=== PATIENT | female | born 1960 | race Caucasian/White ===

== ENCOUNTER 2016-12-19 12:38 | Inpatient (IN) | payer MEDICAID ==
[~2016-12-19] VITALS: Ht 162.6 cm; Wt 91.6 kg
[2016-12-19 12:49] VITALS: BP 136/70
--- NOTE | 2016-12-19 13:04 | NUR ---
Patient transferred to bed 8 via wheelchair by tech. RN evaluating patient at bedside.
--- NOTE | 2016-12-19 13:08 | NUR ---
PATIENT PRESENTS TO ED WITH C/O LEFT GLUTEAL PAIN RADIATING TO LEFT KNEE, X3 DAYS BURNING THROBBING PAIN;S/P SLEPT TUESDAY NIGHT IN A TENT OUTSIDE---AMBULATORY WITH SLOW PACE STEADY GAIT;HX OF HTN, NEUROPATHY, HYPERLIPIDEMIA;RX OF ENALAPRIL, AMLODIPINE, GABAPENTIN, SIMVASTATIN . DENIES N/V/D; SKIN IS PINK/WARM/DRY; AAOX4 WITH EVEN AND STEADY GAIT; LUNGS CLEAR BL; HR EVEN AND REGULAR; PT DENIES ANY FEVER, CP, SOB, OR COUGH AT THIS TIME; PATIENT STATES PAIN OF 10/10 AT THIS TIME; PATIENT POSITIONED FOR COMFORT; HOB ELEVATED; BEDRAILS UP X2; BED DOWN.
[2016-12-19] MEDS ORDERED: NACL 0.9% 1,000 ML IV SCH (13:22)
[2016-12-19] MEDS ORDERED: ONDANSETRON 4 MG/2 ML VIAL IVP ONE (13:25)
[2016-12-19] MEDS ORDERED: KETOROLAC 30 MG/ML VIAL IVP ONE (13:25)
[2016-12-19 13:42] LABS: BASOPHILS # (AUTO) 0.5 K/uL (0.00-0.22); BASOPHILS % (AUTO) 3.8 % (0.0-2.0); EOSINOPHILS # (AUTO) 0.1 K/uL (0-0.4); EOSINOPHILS % (AUTO) 0.6 % (0.0-4.0); HEMATOCRIT 47.3 % (36-48); HEMOGLOBIN 15.3 g/dL (12.0-16.0); LYMPHOCYTES # (AUTO) 3.8 K/uL (2.5-16.5); MEAN CORPUSCULAR HEMOGLOBIN 27 pg (27-31); MEAN CORPUSCULAR HGB CONC 32 g/dL (33-37); MEAN CORPUSCULAR VOLUME 85 fL (80-94); MONOCYTES # (AUTO) 0.6 K/uL (0.8-1.0); MONOCYTES % (AUTO) 5.1 % (1.7-9.3); NEUTROPHILS % (AUTO) 58.5 % (42.2-75.2); PLATELET COUNT (AUTO) 328 K/uL (140-450); RED BLOOD CELL COUNT(AUTO) 5.59 MIL/uL (4.20-5.40); RED CELL DISTRIBUTION WIDTH 12.7 % (11.6-13.7)
[2016-12-19 13:47] LABS: APPEARANCE,URINE CLEAR (CLEAR); BILIRUBIN,URINE NEGATIVE (NEGATIVE); BLOOD, URINE 2+ (NEGATIVE); COLOR,URINE YELLOW (YELLOW); LEUKOCYTE ESTERASE ,URINE 2+ (NEGATIVE); NITRITE, URINE NEGATIVE (NEGATIVE); PROTEIN,URINE 1+ (NEGATIVE); UGLUCOSE NEGATIVE (NEGATIVE); UROBILINOGEN,URINE 0.2 EU/dL (0.2 - 1)
[2016-12-19 13:56] LABS: BACTERIA,URINE 1+ /HPF (None Seen); RBC,URINE 11-20 (MOD) /HPF (0-5); SQUAMOUS EPITHELIAL CELL,UR 4-10 (MOD) /LPF (0-3 (FEW))
[2016-12-19 13:57] LABS: ANION GAP 17.1 (8-16); CALCIUM 9.2 mg/dL (8.5-10.1); CARBON DIOXIDE 23.1 mmol/L (21-32); CREATININE 0.7 mg/dL (0.6-1.3); POTASSIUM 3.2 mmol/L (3.5-5.1)
[2016-12-19 14:01] LABS: PARTIAL THROMBOPLASTIN TIME 26.8 secs (22-35.6); PROTHROMBIN TIME 10.2 secs (10.8-13.4)
[2016-12-19 14:03] LABS: ALBUMIN 4.3 g/dL (3.4-5.0); TOTAL BILIRUBIN 0.5 mg/dL (0.0-1.0); TOTAL PROTEIN, SERUM 8.2 g/dL (6.4-8.2)
--- NOTE | 2016-12-19 15:23 | NUR ---
ASSISTED TO BEDPAN
[2016-12-19] MEDS ORDERED: MORPHINE SULFATE 2 MG/ML SYR IVP PRN (16:10)
[2016-12-19] MEDS ORDERED: DOCUSATE SODIUM 100 MG GELCAP PO PRN (16:10)
[2016-12-19] MEDS ORDERED: ONDANSETRON 4 MG/2 ML VIAL IM/IVP PRN (16:10)
[2016-12-19] MEDS ORDERED: ACETAMINOPHEN 325 MG TAB PO PRN (16:10)
[2016-12-19] MEDS ORDERED: POTASSIUM CHLORIDE 10 MEQ TABER PO SCH (16:30)
--- NOTE | 2016-12-19 16:32 | NUR ---
Patient will be admitted to care of DR PRICE. Admited to TELE. Will go to room 119. Belongings list completed. Report to GAYATHRI HARLEY.
[2016-12-19] MEDS: LACTOBACILLUS RHAMNOSUS GG 1 EACH CAP PO SCH (16:35)
[2016-12-19] MEDS ORDERED: VAS10 PO (16:39)
[2016-12-19] MEDS ORDERED: AMLO10TA PO (16:39)
[2016-12-19] MEDS ORDERED: SIMV20TA1 PO (16:39)
[2016-12-19] MEDS ORDERED: GABA300C PO (16:39)
--- NOTE | 2016-12-19 17:00 | NUR ---
PATIENT ADMITTED TO THE UNIT FROM ER. PATIENT AWAKE, ALERT AND ORIENTED. PATIENT BREATHING ON ROOM AIR. PATIENT C/O 10/10 PAIN ON HER LEFT LEG AND LOWER BACK WHEN SHE AMBULATES. SKIN IS INTACT. IV LINE NOTED TO THE RIGHT AC. PATIENT PLACED ON TELE MONITORING. BED LOWERED WITH CALL LIGHT WITHIN REACH. WILL CONTINUE TO MONITOR
[2016-12-19 17:02] LABS: CHOL/HDL RATIO 3.7 (1-4.5); FREE T4 (FREE THYROXINE) 1.18 ng/dL (0.76-1.46); MAGNESIUM 2.2 mg/dL (1.8-2.4); PHOSPHORUS 3.2 mg/dL (2.5-4.9); THYROID STIMULATING HORMONE 1.61 uIU/mL (0.34-3.74)
[2016-12-19] MEDS ORDERED: DEXAMETHASONE 4 MG/ML VIAL IVP SCH ×2 (17:30→17:50)
--- NOTE | 2016-12-19 17:30 | NUR ---
DR LO EVALUATING PATIENT AT BEDSIDE
[2016-12-19 17:52] VITALS: BP 135/73
[2016-12-19] MEDS ORDERED: cefTRIAXone 1,000 MG VIAL ONE (18:13)
[2016-12-19] MEDS: METHOCARBAMOL 500 MG TAB PO SCH ×2 (18:25→20:25)
--- NOTE | 2016-12-19 18:26 | NUR ---
PER DR. WALLY KEITH TO HOLD CULTURELLE UNTIL TOMORROW AM.
--- NOTE | 2016-12-19 19:30 | NUR ---
ENDORSED CONTINUITY OF CARE TO THE NIGHT NURSE. PATIENT ENDORSED IN STABLE CONDITION
--- NOTE | 2016-12-19 19:31 | NUR ---
RECEIVED REPORT FROM AM NURSE. PATIENT SEEN ON BED EATING DINNER, A/OX4, ABLE TO VERBALIZE NEEDS. NO S/S OF DISTRESS. WITH AN IV AT RIGHT AC 20 G, PATENT AND INTACT. NO COMPLAINTS OF PAIN, BUT VERBALIZES THAT WHEN SHE AMBULATES TO THE BATHROOM, SHE FEELS THE PAIN IN HER LEG. ALSO SHE VERBALIZED THAT THE SEQUENTIALS HELP WITH HER LEG. SKIN INTACT. ON TELE MONTIORING, AT . DISCUSSED PLAN OF CARE WITH THE PATIENT, VERBALIZED UNDERSTANDING. WILL CONTINUE TO MONITOR. CALL LIGHT WITHIN REACH. SAFETY CHECKS IN PLACE.
[2016-12-19 20:00] VITALS: BP 123/64
[2016-12-19] MEDS: SIMVASTATIN 20 MG TAB PO SCH (20:23)
--- NOTE | 2016-12-19 20:23 | NUR ---
VITAL SIGNS STABLE. DUE MEDS GIVEN, TOLERATED. WILL CONTINUE TO MONITOR.
--- NOTE | 2016-12-19 22:08 | NUR ---
PT SEEN ON BED ASLEEP, NO S/S OF DISTRESS. WILL CONTINUE TO MONITOR FOR ANY CHANGES.
[2016-12-19] MEDS: HYDROcodone/APAP 7.5/325 MG 1 TAB PO PRN (22:18)
--- NOTE | 2016-12-19 22:18 | NUR ---
PT REPORTED PAIN IN THE LEGS, GIVEN PRN NORCO. WILL CONTINUE TO MONITOR FOR ANY CHANGES.
[2016-12-20] VITALS: BP 121/70
--- NOTE | 2016-12-20 | NUR ---
PT SEEN AWAKE ON BED. VITAL SIGNS TAKEN AND ARE STABLE. AMBULATED TO THE BATHROOM. WILL CONTINUE TO MONITOR FOR ANY CHANGES.
--- NOTE | 2016-12-20 00:05 | NUR ---
INSTRUCTED PT FOR NPO POST MIDNIGHT Addendum: 12/20/16 at 0438 by Peace Bowers RN WRONG PATIENT
--- NOTE | 2016-12-20 03:05 | NUR ---
PT SEEN AMBULATING TO THE BATHROOM. NO S/S OF DISTRESS. WILL CONTINUE TO MONITOR FOR ANY CHANGES.
[2016-12-20 04:00] VITALS: BP 121/81
--- NOTE | 2016-12-20 06:25 | NUR ---
PT AMBULATED TO THE BATHROOM. NO S/S OF DISTRESS. WILL CONTINUE TO MONITOR.
--- NOTE | 2016-12-20 07:23 | NUR ---
ENDORSED TO AM NURSE FOR CONTINUITY OF CARE. IN STABLE CONDITION.
--- NOTE | 2016-12-20 07:24 | NUR ---
RECEIVED PT IN BED. AWAKE. ALERT ORIENTED X4. NO SOB NOTED. DENIES ANY PAIN OR DISCOMFORT AT THIS TIME.POSITIVE BOWEL SOUNDS NOTED ON FOUR QUADRANTS. PT AMBULATORY. DENIES ANY DISCOMFORT WITH BOWEL OR BLADDER ELIMINATION AT THIS TIME. SAFETY PRECAUTION IN PLACE. CALL LIGHT WITHIN REACH.
[2016-12-20 08:00] VITALS: BP 135/80
[2016-12-20] MEDS: LACTOBACILLUS RHAMNOSUS GG 1 EACH CAP PO SCH (08:27)
[2016-12-20] MEDS: ENALAPRIL 10 MG TAB PO SCH (08:27)
[2016-12-20] MEDS: amLODIPine 5 MG TAB PO SCH (08:28)
[2016-12-20] MEDS: METHOCARBAMOL 500 MG TAB PO SCH ×4 (08:28→20:54)
[2016-12-20] MEDS: GABAPENTIN 300 MG CAP PO SCH (08:28)
[2016-12-20 08:55] LABS: HEMATOCRIT 47.4 % (36-48); HEMOGLOBIN 15.5 g/dL (12.0-16.0); MEAN CORPUSCULAR HEMOGLOBIN 28 pg (27-31); MEAN CORPUSCULAR HGB CONC 33 g/dL (33-37); MEAN CORPUSCULAR VOLUME 86 fL (80-94); PLATELET COUNT (AUTO) 338 K/uL (140-450); RED BLOOD CELL COUNT(AUTO) 5.53 MIL/uL (4.20-5.40); RED CELL DISTRIBUTION WIDTH 12.4 % (11.6-13.7)
--- NOTE | 2016-12-20 08:55 | NUR ---
PATIENT HAS BEEN SCREENED AND CATEGORIZED MODERATE NUTRITION RISK. PATIENT WILL BE SEEN WITHIN 3-5 DAYS OF ADMISSION. 12/22/16-12/24/[address]
[2016-12-20 09:15] LABS: T4 (THYROXINE) 9.3 ug/dL (4.5-12.0)
[2016-12-20 09:20] LABS: ANION GAP 14.9 (8-16); CALCIUM 8.9 mg/dL (8.5-10.1); CARBON DIOXIDE 24.9 mmol/L (21-32); CREATININE 1.1 mg/dL (0.6-1.3); POTASSIUM 3.8 mmol/L (3.5-5.1)
[2016-12-20 09:24] LABS: MAGNESIUM 2.3 mg/dL (1.8-2.4)
[2016-12-20 09:32] LABS: WHITE BLOOD COUNT (AUTO) 18.8 K/uL (4.8-10.8)
[2016-12-20 09:33] LABS: BAND % (MANUAL) 1 % (0-8); LYMPHOCYTES % (MANUAL) 14 % (20-46); MONOCYTES % (MANUAL) 1 % (5-12); NEUTROPHILS % (MANUAL) 84 (43-65)
[2016-12-20 12:00] VITALS: BP 127/73
[2016-12-20] MEDS: HYDROcodone/APAP 7.5/325 MG 1 TAB PO PRN (12:28)
--- NOTE | 2016-12-20 13:00 | NUR ---
DR. WOOD MADE AWARE OF PT REQUEST TO HAVE A SLEEPING PILL AT NIGHT SINCE SHE USED TO TAKE IT BEFORE BEING ADMITTED TO THE HOSPITAL AND SHE HAD A HARD TIME SLEEPING LAST NIGHT. TO SEE PT AND TO MAKE AN ORDER.
--- NOTE | 2016-12-20 14:22 | NUR ---
FAXED INITIAL REVIEW TO [facility] [phone] PHONE JEFFREY [phone]
[2016-12-20 16:00] VITALS: BP 119/64
--- NOTE | 2016-12-20 18:20 | NUR ---
DAUGHTER GAVINO AT BEDSIDE ASSISTED PT WITH FEEDING. PT CONSUMED 50-70% OF HER MEAL. PT AWAKE. IJ LINE DRESSING DRY AND INTACT.
--- NOTE | 2016-12-20 19:22 | NUR ---
PT KEPT CLEAN, DRY AND COMFORTABLE, NEEDS ATTENDED. ENDORSED TO NEXT SHIFT ON STABLE CONDITION FOR CONTINUITY OF CARE. HEATING PAD IN PLACE, PT VERBALIZED IT GIVES HER COMFORT AND SCD IN PLACE.
--- NOTE | 2016-12-20 19:25 | NUR ---
RECEIVED FROM AM RN IN BED SLEEPING. WAKES UP WHEN TOUCHED. WENT BACK TO SLEEP. NO COMPLAINTS DONE AT THIS TIME. CARE PLANS FOR THE NIGHT DISCUSSED WITH HER AND CALL LIGHT WITH IN REACH.
[2016-12-20] MEDS: SIMVASTATIN 20 MG TAB PO SCH (20:54)
[2016-12-20] MEDS ORDERED: ZOLPIDEM 5 MG TAB PO SCH (21:00)
--- NOTE | 2016-12-20 22:30 | NUR ---
CT SCAN OF LUMBAR SPINE WITHOUT CONTRAST DONE. NO COMPLAINTS DONE. GOOD AFFECT. CALL LIGHT WITH IN REACH. ABLE TO VERBALIZE NEEDS WELL.
[2016-12-21 00:20] VITALS: BP 120/80
--- NOTE | 2016-12-21 00:38 | NUR ---
ASLEEP. NO RESTLESSNESS NOTED. INDEPENDENT. CALL LIGHT WITH IN REACH. NO PAIN COMPLAINTS DONE AT THIS TIME. DX. LOW BACK PAIN AND LEFT LEG PAIN.
--- NOTE | 2016-12-21 02:10 | NUR ---
SLEEPING. NO RESTLESSNESS NOTED. CALL LIGHT WITH IN REACH. IVF SITE ON [facility].
--- NOTE | 2016-12-21 04:15 | NUR ---
SLEEPING WELL THIS SHIFT. NO PAIN COMPLAINTS DONE. CALL LIGHT WITH IN REACH AT ALL TIMES. A/O X 4. ROM X 4.
[2016-12-21 05:35] LABS: BASOPHILS # (AUTO) 0.2 K/uL (0.00-0.22); BASOPHILS % (AUTO) 1.1 % (0.0-2.0); EOSINOPHILS # (AUTO) 0.2 K/uL (0-0.4); HEMATOCRIT 42.8 % (36-48); LYMPHOCYTES # (AUTO) 3.8 K/uL (2.5-16.5); LYMPHOCYTES % (AUTO) 22.4 % (20.5-51.1); MEAN CORPUSCULAR HEMOGLOBIN 28 pg (27-31); MEAN CORPUSCULAR HGB CONC 33 g/dL (33-37); MEAN CORPUSCULAR VOLUME 86 fL (80-94); MONOCYTES # (AUTO) 0.7 K/uL (0.8-1.0); MONOCYTES % (AUTO) 4.1 % (1.7-9.3); NEUTROPHILS % (AUTO) 71.4 % (42.2-75.2); PLATELET COUNT (AUTO) 320 K/uL (140-450); RED BLOOD CELL COUNT(AUTO) 4.99 MIL/uL (4.20-5.40); RED CELL DISTRIBUTION WIDTH 12.8 % (11.6-13.7); WHITE BLOOD COUNT (AUTO) 16.9 K/uL (4.8-10.8)
--- NOTE | 2016-12-21 07:28 | NUR ---
SLEEPING WELL THIS SHIFT. WOKE UP WHEN TOUCHED AND INTRODUCED AM RN TO HER. GOOD AFFECT. NO PAIN COMPLAINTS DONE.
--- NOTE | 2016-12-21 07:29 | NUR ---
PT AWAKE AND ALERT, NO SIGNS OF ACUTE DISTRESS. BOWEL SOUNDS ACTIVE IN ALL 4 QUADRANTS, BOWEL AND BLADDER CONTINENCE. SKIN INTACT. AMBULATORY WITH BRP. IV PATENT AND ASYMPTOMATIC. DENIES PAIN AT THIS TIME. RE-ORIENTED PATIENT TO HOSPITAL AND TO UNIT, PT VERBALIZES UNDERSTANDING. BED IN LOW POSITION WITH BILATERAL HALF SIDE RAILS UP, CALL LIGHT WITHIN REACH.
[2016-12-21 08:00] VITALS: BP 119/66
[2016-12-21 08:12] LABS: HEMOGLOBIN A1C 6.6 % (4.8-5.6)
[2016-12-21] MEDS: GABAPENTIN 300 MG CAP PO SCH (08:36)
[2016-12-21] MEDS: LACTOBACILLUS RHAMNOSUS GG 1 EACH CAP PO SCH (08:36)
[2016-12-21] MEDS: METHOCARBAMOL 500 MG TAB PO SCH ×3 (08:37→16:31)
[2016-12-21] MEDS: amLODIPine 5 MG TAB PO SCH (08:37)
[2016-12-21] MEDS: ENALAPRIL 10 MG TAB PO SCH (08:37)
--- NOTE | 2016-12-21 09:45 | NUR ---
CM NOTE FAXED CONCURRENT REVIEW TO [facility] [phone] PHONE JEFFREY [phone]
--- NOTE | 2016-12-21 10:49 | NUR ---
RECEIVED DISCHARGE ORDER, NOTED, WILL CARRY OUT.
[2016-12-21] MEDS ORDERED: LACT10CA PO (13:19)
[2016-12-21] MEDS ORDERED: ZOLP5TAB1 PO (13:19)
[2016-12-21] MEDS ORDERED: ACET-9529 PO (13:19)
[2016-12-21] MEDS ORDERED: METH500T18 PO (13:19)
[2016-12-21] MEDS ORDERED: DOCU-67 PO (13:19)
[2016-12-21] MEDS ORDERED: METH4TAB3 PO (13:22)
[2016-12-21] MEDS ORDERED: NITR100C7 PO (13:23)
[2016-12-21] MEDS: HYDROcodone/APAP 7.5/325 MG 1 TAB PO PRN (13:49)
--- NOTE | 2016-12-21 14:00 | NUR ---
CM NOTE FAXED ORDER FOR FWW TO [facility] [phone]. SPOKE WITH YAMILKA OF [facility] PH [phone] AND INFORMED HER THAT THE DOCTOR WANTS THE FWW DELIVERED BEDSIDE BEFORE THE PATIENT GETS DISCHARGED TODAY. PER LEANDRO, USE [facility] PH [phone] FOR THE FWW AND SHE WILL GENERATE THE AUTHORIZATION. JAKE NAVARRO.
--- NOTE | 2016-12-21 14:44 | NUR ---
SS NOTE: PER SOLITARIO FROM [facility] ([phone]), THEY DO NOT DELIVER SINGLE ITEMS BEDSIDE. HE ALSO STATED THAT THEY WILL SHIP OUT PT'S FWW AND IT SHOULD BE DELIVERED AT HOME IN [address] WOOD MADE AWARE.
--- NOTE | 2016-12-21 15:20 | NUR ---
CELESTINA NOTE SPOKE WITH LEANDRO OF [facility] AT 1420 TO INFORM HER OF THE ADDITIONAL ORDER FOR HOME HEALTH FOR PT. FAXED THE ORDER TO [facility] [phone]. CALLED LEANDRO BACK AT 1500 TO FOLLOW UP ON THE HOME HEALTH AND SHE SAID SHE WILL CALL BACK WHEN THE AUTHORIZATION HAS BEEN GENERATED. JAKE NAVARRO.
--- NOTE | 2016-12-21 15:52 | NUR ---
SS NOTE: PER AMANDA REEVSE ([phone]. [phone]), SEND PT'S INFORMATION TO [facility] (C: [phone], F: [phone]) PER YENI FROM [facility], THEY DO SERVICE THE [place] AND WILL HAVE INTAKE CALL BACK ONCE PT'S REFERRAL HAS BEEN PROCESSED AND APPROVED
[2016-12-21 16:00] VITALS: BP 114/69
--- NOTE | 2016-12-21 16:21 | NUR ---
SS NOTE: PER GONZALO FROM [facility] ([phone]), THEY RECEIVED AUTH FROM PT'S INSURANCE AND THEY WILL CALL PT TO SCHEDULE A TIME TO SEE PT AT HOME.
--- NOTE | 2016-12-21 18:00 | NUR ---
PT AWAKE AND ALERT, NO SIGNS OF ACUTE DISTRESS. CUT OFF WRIST BANDS AND DISCONTINUED PATIENT IV. PROVIDED DISCHARGE INSTRUCTIONS INCLUDING NEW PRESCRIPTIONS, FOLLOW UP APPOINTMENT WITH PCP AND DR [facility] AND SIGNS AND SYMPTOMS OF WORSENING CONDITION AND INFECTION. PT VERBALIZED UNDERSTANDING. ESCORTED PATIENT OUT TO FRONT LOBBY TO LEAVE VIA PRIVATE AUTO WITH MOTHER.
== END 2016-12-21 18:00 | disposition home health service (06) | DRG 347 ==
LOC: MED 12:38 → MTU 16:19
PROVIDERS: ADMIT Family Medicine; ATTEND Family Medicine
DX: M54.16 Radiculopathy, lumbar region (principal); N17.0 Acute kidney failure with tubular necrosis; D68.59 Other primary thrombophilia; N39.0 Urinary tract infection, site not specified; E11.65 Type 2 diabetes mellitus with hyperglycemia; M48.07 Spinal stenosis, lumbosacral region; I10 Essential (primary) hypertension; M46.04 Spinal enthesopathy, thoracic region; R32 Unspecified urinary incontinence; E87.6 Hypokalemia; E78.5 Hyperlipidemia, unspecified; M12.88 Other specific arthropathies, not elsewhere classified, other specified site; D72.829 Elevated white blood cell count, unspecified; M48.06 Spinal stenosis, lumbar region; Z88.8 Allergy status to other drugs, medicaments and biological substances; Z79.899 Other long term (current) drug therapy; Z98.51 Tubal ligation status
CPT/HCPCS: 36415; 71010; 72131; 80048; 80053; 81001; 82150; 82553; 83036; 83690; 83735; 83880; 84100; 84436; 84439; 84443; 84479; 84484; 85025; 85610; 85730; 87081; 87086; 93005; 93970; 96361; 96374; 96375; 97110; 97116; 97530; 99285; J0696; J1100; J1885; J2405; J7030; J7060; Q0092; Q9967

== ENCOUNTER 2017-11-28 10:55 | Emergency (ER) | payer MEDICAID ==
[~2017-11-28] VITALS: Ht 160 cm; Wt 93.5 kg
[~2017-11-28 10:55] MED LIST: ACET-9529 PO; AMLO10TA PO; DOCU-299 PO; GABA300C PO; LACT10CA PO; METH4TAB3 PO; METH500T18 PO; NITR100C7 PO; SIMV20TA1 PO; VAS10 PO; ZOLP5TAB1 PO
[2017-11-28 11:00] VITALS: BP 128/90
--- NOTE | 2017-11-28 11:05 | NUR ---
PT AMBULATES TO BED 9, REPORT GIVEN TO GAYATHRI HURTADO
--- NOTE | 2017-11-28 11:08 | NUR ---
PT C/O SKIN IRRITATION TO BACK OF NECK AND FACE SINCE LAST NIGHT AFTER USING HAIR DYE. RED PATCH OF SCABS TO BACK OF NECK, REDNESS TO FACE. DENIES SOB OR COUGH. NAD NOED/STATED OTHERWISE. DR LANGE AT BEDSIDE
[2017-11-28] MEDS ORDERED: DEXAMETHASONE 10 MG/ML VIAL IM ONE (11:15)
[2017-11-28] MEDS ORDERED: LORATADINE 10 MG TAB PO ONE (11:15)
[2017-11-28 11:50] VITALS: BP 122/78
--- NOTE | 2017-11-28 11:51 | NUR ---
Patient discharged with v/s stable. Written and verbal after care instructions given and explained. Patient alert, oriented and verbalized understanding of instructions. Ambulatory with steady gait. All questions addressed prior to discharge. ID band removed. Patient advised to follow up with PMD. Rx of ZYRTEC, HYDROCORTISONE CREAM given. Patient educated on indication of medication including possible reaction and side effects. Opportunity to ask questions provided and answered.
== END 2017-11-28 11:51 | disposition home or self-care (01) ==
LOC: MED 10:55
DX: T65.6X1A Toxic effect of paints and dyes, not elsewhere classified, accidental (unintentional), initial encounter (principal); L25.2 Unspecified contact dermatitis due to dyes; R22.1 Localized swelling, mass and lump, neck; L29.9 Pruritus, unspecified; I10 Essential (primary) hypertension; Z79.899 Other long term (current) drug therapy; Y92.89 Other specified places as the place of occurrence of the external cause
CPT/HCPCS: 99283

== ENCOUNTER 2017-12-31 16:39 | Emergency (ER) | payer MEDICAID ==
[~2017-12-31] VITALS: Ht 162.6 cm; Wt 95.3 kg
--- NOTE | 2017-12-31 17:15 | NUR ---
PT TRIAGED AND MEDICATED FOR FEVER PER PROTOCOL. AMBULATED TO BED 3 REPORT GIVEN TO ANASTASIA TRINH.
--- NOTE | 2017-12-31 17:20 | NUR ---
PT C/O FACIAL SWELLING, NECK SWELLING, CHILLS, ERYTHEMA SINCE THIS AM. STATES 2 MONTHS AGO SHE DYED HER HAIR AND HAD A SIMILAR PROBLEM 1 MONTH LATER. NO C/O SOB/CP. HX: HTN
[2017-12-31] MEDS ORDERED: ACETAMINOPHEN EXTRA STRENGTH 500 MG TAB ONE (17:25)
[2017-12-31] MEDS ORDERED: IBUPROFEN 800 MG TAB ONE (17:26)
[2017-12-31 17:51] VITALS: BP 145/80
[2017-12-31] MEDS ORDERED: DEXAMETHASONE 10 MG/ML VIAL IM ONE (18:20)
[2017-12-31] MEDS ORDERED: diphenhydrAMINE 50 MG/ML VIAL IM ONE (18:20)
--- NOTE | 2017-12-31 18:35 | NUR ---
ICE PACK GIVEN AND APPLIED TO PT'S FOREHEAD
--- NOTE | 2017-12-31 19:23 | NUR ---
Patient discharged with v/s stable. Written and verbal after care instructions given and explained. Patient alert, oriented and verbalized understanding of instructions. Ambulatory with steady gait. All questions addressed prior to discharge. ID band removed. Patient advised to follow up with PMD. Rx of PREDNISONE, ATARAX given. Patient educated on indication of medication including possible reaction and side effects. Opportunity to ask questions provided and answered.
[2017-12-31 19:24] VITALS: BP 136/60
== END 2017-12-31 19:23 | disposition home or self-care (01) ==
LOC: MED 16:39
DX: R22.0 Localized swelling, mass and lump, head (principal); L53.9 Erythematous condition, unspecified; I10 Essential (primary) hypertension; Z79.899 Other long term (current) drug therapy
CPT/HCPCS: 96372; 99284; J1100; J1200

== ENCOUNTER 2018-10-04 14:41 | Emergency (ER) | payer MEDICAID ==
[~2018-10-04] VITALS: Ht 165.1 cm; Wt 91.6 kg
[~2018-10-04 14:41] MED LIST changes: +ENAL-197 PO; -VAS10 PO
[2018-10-04 14:45] VITALS: BP 143/75
--- NOTE | 2018-10-04 14:50 | NUR ---
PATIENT AMBULATED TO ER BED 11.
--- NOTE | 2018-10-04 16:59 | NUR ---
PATIENT PRESENTS TO ED WITH EPISTAXIS . PT STATES SHE HAS HAD A NOSE BLEED SINCE TUESDAY . DENIES N/V/D; SKIN IS PINK/WARM/DRY; AAOX4 WITH EVEN AND STEADY GAIT; PT DENIES ANY FEVER, CP, SOB, OR COUGH AT THIS TIME; PATIENT STATES PAIN OF 0/10 AT THIS TIME; VSS; PATIENT POSITIONED FOR COMFORT; HOB ELEVATED; BEDRAILS UP X2; BED DOWN. ER MD MADE AWARE OF PT STATUS.
--- NOTE | 2018-10-04 17:12 | NUR ---
Patient discharged with v/s stable. Written and verbal after care instructions given and explained. Patient alert, oriented and verbalized understanding of instructions. Ambulatory with steady gait. All questions addressed prior to discharge. ID band removed. Patient advised to follow up with PMD. Rx of OCEAN 0.65% NASAL SOLUTION, FLONASE 50MCG/ACTUATION NASAL SPRAY given. Patient educated on indication of medication including possible reaction and side effects. Opportunity to ask questions provided and answered.
== END 2018-10-04 17:12 | disposition home or self-care (01) ==
LOC: MED 14:41
DX: J30.9 Allergic rhinitis, unspecified (principal); R04.0 Epistaxis; I10 Essential (primary) hypertension; Z79.899 Other long term (current) drug therapy
CPT/HCPCS: 99283

== ENCOUNTER 2020-04-09 14:51 | Emergency (ER) | payer MEDICAID ==
[~2020-04-09] VITALS: Ht 157.5 cm; Wt 93.0 kg
[2020-04-09 14:54] VITALS: BP 119/82
[2020-04-09] MEDS: KETOROLAC 30 MG/ML VIAL IM ONE (15:28)
[2020-04-09 16:04] VITALS: BP 118/61
== END 2020-04-09 16:04 | disposition home or self-care (01) ==
LOC: MED 14:51
DX: M25.561 Pain in right knee (principal); I10 Essential (primary) hypertension; Z96.651 Presence of right artificial knee joint; Z79.899 Other long term (current) drug therapy
CPT/HCPCS: 73562; 96372; 99283; J1885